=== PATIENT | female | born 1950 | race Caucasian/White ===

== ENCOUNTER 2019-07-18 07:30 | Inpatient (IN) | payer OTHER ==
[~2019-07-18] VITALS: Ht 157.5 cm; Wt 86.0 kg
[2019-08-30 14:46] LABS: EOSINOPHILS % (AUTO) 3.9 % (1.0-6.0); HEMOGLOBIN 15.4 g/dL (12.0-16.0); LYMPHOCYTES # (AUTO) 2.2 K/uL (1.0-4.8); MONOCYTES # (AUTO) 0.7 K/uL (0.1-1.0); NEUTROPHILS # (AUTO) 6.1 K/uL (1.8-7.7); RED CELL DISTRIBUTION WIDTH 13.8 % (11.5-14.5)
[2019-08-30 14:52] LABS: BASOPHILS % (AUTO) 0.1 % (0.0-2.0); HEMATOCRIT 45.2 % (36-46); LYMPHOCYTES % (AUTO) 23.4 % (22.0-44.0); MEAN CORPUSCULAR HEMOGLOBIN 30.6 pg (26.0-34.0); MEAN CORPUSCULAR VOLUME 90 fL (80-100); MONOCYTES % (AUTO) 7.4 % (2.0-9.0); NEUTROPHILS % (AUTO) 65.2 % (40.0-70.0); PLATELET COUNT (AUTO) 324 K/uL (150-450); RED BLOOD CELL COUNT(AUTO) 5.01 MIL/uL (4.00-5.20)
[2019-08-30 14:56] LABS: ANION GAP 10 mmol/L (8-16); CALCIUM, TOTAL 9.5 mg/dL (8.8-10.5); CARBON DIOXIDE 27 mmol/L (22-29); CHLORIDE 99 mmol/L (98-107); CREATININE 0.75 mg/dL (0.60-1.30); GLOMERULAR FILTR. RATE CALC > 60 mL/min (>60); GLUCOSE,RANDOM 118 mg/dL (70-110); POTASSIUM 3.8 mmol/L (3.5-5.1); SODIUM SERUM 136 mmol/L (136-145); UREA NITROGEN, BLOOD 9 mg/dL (7-18)
[2019-08-30 15:03] LABS: ALANINE AMINOTRANSFERASE 18 U/L (12-78); ALBUMIN 4.3 g/dL (3.4-5.0); ALKALINE PHOSPHATASE 112 U/L (46-116); ASPARTATE AMINOTRANSFERASE 15 U/L (15-37); BILIRUBIN,TOTAL 0.5 mg/dL (0.1-1.0); TOTAL PROTEIN, SERUM 7.6 g/dL (6.4-8.2)
[2019-08-30 15:11] LABS: PROTHROMBIN TIME 10.1 SEC (9.4-11.6)
[2019-09-06] MEDS ORDERED: GABA-771 PO (10:39)
[2019-09-06] MEDS ORDERED: ESTR1TAB PO (10:39)
[2019-09-06] MEDS ORDERED: ALPR0.5T8 PO (10:39)
[2019-09-06] MEDS ORDERED: DIPH25 PO (10:39)
[2019-09-06] MEDS ORDERED: DILT60SR PO (10:39)
[2019-09-07] MEDS ORDERED: RINGERS SOLUTION,LACTATED 1,000 ML IV ONE ×2 (04:30→05:26)
[2019-09-07] MEDS ORDERED: CeFAZolin 2 GM/DEXTROSE 50 ML IV ONE ×2 (04:30→05:26)
[2019-09-07] MEDS ORDERED: VANCOMYCIN HCL 1 GM/VIAL ONE (06:22)
[2019-09-07] MEDS ORDERED: BUPIVACAINE HCL/PF 0.5% 30 ML VIAL ONE (06:22)
[2019-09-07] MEDS ORDERED: BUPIVACAINE LIPOSOME/PF 1.3%-13.3MG/ML SUSPENSION 20 ML VIAL INJ ONE (06:30)
[2019-09-07] MEDS ORDERED: SCOPOLAMINE HYDROBROMIDE 1.5 MG PATCH TD ONE (07:15)
[2019-09-07] MEDS ORDERED: BUPIVACAINE LIPOSOME/PF 1.3%-13.3MG/ML SUSPENSION 10 ML VIAL INJ ONE (07:15)
[2019-09-07] MEDS ORDERED: DiphenhydrAMINE HCL 50 MG/ML VIAL IVP PRN (09:30)
[2019-09-07] MEDS ORDERED: BENZOCAINE/MENTHOL LOZENGE PO PRN (09:30)
[2019-09-07] MEDS ORDERED: FentaNYL CITRATE-PF 100 MCG/2 ML VIAL IVP PRN (09:30)
[2019-09-07] MEDS ORDERED: MEPERIDINE-PF 25 MG/ML VIAL IVP PRN (09:30)
[2019-09-07] MEDS ORDERED: HYDROmorphone 2 MG/ML SYRINGE IVP PRN ×2 (09:30→10:45)
[2019-09-07] MEDS ORDERED: ONDANSETRON HCL 4 MG/2 ML VIAL IVP PRN ×2 (09:30→10:45)
[2019-09-07 09:56] VITALS: BP 117/64
[2019-09-07] MEDS ORDERED: CYCLOBENZAPRINE HCL 10 MG TABLET PO PRN (10:45)
[2019-09-07] MEDS ORDERED: CELECOXIB 200 MG CAPSULE PO ONE (10:45)
[2019-09-07] MEDS: ACETAMINOPHEN 1000 MG/ISO-OSM 100 ML IV SCH ×3 (10:59→23:40)
[2019-09-07 11:21] VITALS: BP 106/59
[2019-09-07] MEDS: CeFAZolin 1 GM/DEXTROSE 50 ML IV SCH ×2 (14:58→23:44)
[2019-09-07 15:26] VITALS: BP 119/58
[2019-09-07] MEDS ORDERED: INFLUENZA VIRUS VACCINE QVS 2019-20 (3YR+)/PF 60 MCG/0.5 ML SYRINGE IM ONE (16:15)
[2019-09-07] MEDS: OMEPRAZOLE 20 MG CAPSULE PO SCH (16:24)
[2019-09-07 19:20] VITALS: BP 132/71
[2019-09-07] MEDS ORDERED: OXYGEN THERAPY IH SCH (20:00)
[2019-09-07] MEDS: DOCUSATE SODIUM 100 MG CAPSULE PO SCH (20:15)
[2019-09-07 23:06] VITALS: BP 124/63
[2019-09-08] MEDS ORDERED: GLYCOPYRROLATE 0.2 MG/ML VIAL IM ONE (03:55)
[2019-09-08] MEDS ORDERED: SUCCINYLCHOLINE CHLORIDE 20 MG/ML 10 ML VIAL IVP ONE (03:55)
[2019-09-08] MEDS ORDERED: PROPOFOL 1% 20 ML VIAL IVP ONE (03:55)
[2019-09-08] MEDS ORDERED: ONDANSETRON HCL 4 MG/2 ML VIAL IVP ONE (03:55)
[2019-09-08] MEDS ORDERED: FentaNYL CITRATE-PF 100 MCG/2 ML VIAL IVP ONE (03:55)
[2019-09-08] MEDS ORDERED: DEXAMETHASONE SOD PHOS 4 MG/ML VIAL IVP ONE (03:55)
[2019-09-08] MEDS ORDERED: EPHEDrine SULFATE 50 MG/ML VIAL IM ONE (03:55)
[2019-09-08] MEDS ORDERED: LIDOCAINE/PF 2% 5 ML VIAL IM ONE (03:55)
[2019-09-08 04:15] VITALS: BP 112/78
[2019-09-08] MEDS: ACETAMINOPHEN 1000 MG/ISO-OSM 100 ML IV SCH (04:52)
[2019-09-08 06:45] LABS: BASOPHILS % (AUTO) 0.1 % (0.0-2.0); EOSINOPHILS % (AUTO) 0 % (1.0-6.0); HEMATOCRIT 38.3 % (36-46); HEMOGLOBIN 12.9 g/dL (12.0-16.0); LYMPHOCYTES % (AUTO) 5.7 % (22.0-44.0); MEAN CORPUSCULAR HEMOGLOBIN 30.5 pg (26.0-34.0); MEAN CORPUSCULAR HGB CONC 33.7 G/dL (31.0-37.0); MEAN CORPUSCULAR VOLUME 91 fL (80-100); MONOCYTES # (AUTO) 0.5 K/uL (0.1-1.0); MONOCYTES % (AUTO) 2.9 % (2.0-9.0); NEUTROPHILS # (AUTO) 16.2 K/uL (1.8-7.7); PLATELET COUNT (AUTO) 267 K/uL (150-450); RED BLOOD CELL COUNT(AUTO) 4.23 MIL/uL (4.00-5.20); RED CELL DISTRIBUTION WIDTH 13.9 % (11.5-14.5)
[2019-09-08 06:47] LABS: NEUTROPHILS % (AUTO) 91.3 % (40.0-70.0)
[2019-09-08 06:49] LABS: ANION GAP 8 mmol/L (8-16); CALCIUM, TOTAL 8.7 mg/dL (8.8-10.5); CARBON DIOXIDE 26 mmol/L (22-29); CHLORIDE 103 mmol/L (98-107); CREATININE 0.64 mg/dL (0.60-1.30); GLUCOSE,RANDOM 118 mg/dL (70-110); POTASSIUM 3.6 mmol/L (3.5-5.1); SODIUM SERUM 137 mmol/L (136-145); UREA NITROGEN, BLOOD 13 mg/dL (7-18)
[2019-09-08 06:50] LABS: GLOMERULAR FILTR. RATE CALC > 60 mL/min (>60)
[2019-09-08 07:27] VITALS: BP 127/71
[2019-09-08] MEDS: DOCUSATE SODIUM 100 MG CAPSULE PO SCH (08:23)
[2019-09-08] MEDS: OMEPRAZOLE 20 MG CAPSULE PO SCH (08:23)
[2019-09-08] MEDS ORDERED: OxyCODONE HCL/ACETAMINOPHEN 10-325 MG TABLET PO PRN (10:45)
[2019-09-08] MEDS ORDERED: HYDROCODONE/ACETAMINOPHEN 5-325 MG TABLET PO PRN (11:00)
[2019-09-08 11:26] VITALS: BP 104/65
== END 2019-09-08 12:00 | disposition home or self-care (01) | DRG 520 ==
LOC: OBSVTOIN 09-07 05:30 → 4E 09-07 05:30
PROVIDERS: ADMIT Orthopaedic Surgery Orthopaedic Surgery of the Spine; ATTEND Orthopaedic Surgery Orthopaedic Surgery of the Spine
PROC: 0SB20ZZ Excision of Lumbar Vertebral Disc, Open Approach (ICD-10-PCS; principal; 2019-09-07 07:30)
DX: M48.061 Spinal stenosis, lumbar region without neurogenic claudication (principal); G47.00 Insomnia, unspecified; K21.9 Gastro-esophageal reflux disease without esophagitis; I10 Essential (primary) hypertension; G89.29 Other chronic pain
CPT/HCPCS: 87081; 90686; 93005; 97116; 97162; 97165; 97530; 97535; C9290; G0238; G0378; J0131; J0330; J0690; J1100; J1170; J1200; J2405; J2704; J3010; J3370; J3490; J7120